=== PATIENT | male | born 1980 | race African-American/Black ===

== ENCOUNTER 2022-11-03 03:32 | Emergency (ER) | payer MEDICAID ==
[~2022-11-03] VITALS: Ht 182.9 cm; Wt 82.0 kg
[2022-11-03 03:37] VITALS: BP 171/93
[2022-11-03] MEDS ORDERED: DIPHENHYDRAMINE 25MG CAPSULE PO ONE (04:00)
[2022-11-03 05:13] LABS: *AMPHETAMINES SCREEN URINE PRESUMTIVE POSITIVE (NEGATIVE); *BARBITURATES SCREEN URINE NEGATIVE (NEGATIVE); *BENZODIAZEPINES SCREEN URINE NEGATIVE (NEGATIVE); *COCAINE SCREEN URINE NEGATIVE (NEGATIVE); CANNABINOID URINE SCREEN PRESUMTIVE POSITIVE (NEGATIVE); METHADONE URINE SCREEN NEGATIVE (NEGATIVE); OPIATES URINE SCREEN NEGATIVE (NEGATIVE); PHENCYCLIDINE URINE SCREEN PRESUMTIVE POSITIVE (NEGATIVE)
== END 2022-11-03 06:04 | disposition home or self-care (01) ==
LOC: ER 03:32
DX: R20.8 Other disturbances of skin sensation (principal)
CPT/HCPCS: 80305; 99283; Q0163